=== PATIENT | female | born 1995 | race Caucasian/White ===

== ENCOUNTER 2017-08-30 19:58 | Emergency (ER) | payer OTHER ==
[2017-08-30 21:30] LABS: #Basophils 0.1 thou/uL (0.0-0.2); #Eosinphils 0.2 thou/uL (0.0-0.7); #Lymphocytes 2.3 thou/uL (1.20-3.40); #Monocytes 0.4 thou/uL (0.11-0.59); #Neutrophils 5.9 thou/uL (1.40-6.50); %Basophils 0.6 % (0.0-1.0); %Eosinophils 1.8 % (0.0-10.0); %Lymphocytes 26.2 % (21.0-51.0); %Monocytes 4.2 % (0.0-10.0); Hematocrit 42.5 % (36.0-47.0); Red Blood Cell (RBC) Count 4.96 mill/uL (4.20-5.40); White Blood Cell (WBC) Count 8.8 thou/uL (4.8-10.8)
[2017-08-30 21:38] LABS: Bilirubin Negative (Negative); Blood, Urine Negative (Negative); Glucose, Urine (Dipstick) Negative (Negative); Ketone, Urine 40 mg/dL (Negative); Nitrite Negative (Negative); Protein, Urine (Dipstick) Negative (Neg-Trace)
[2017-08-30 21:52] LABS: ALT (SGPT) 18 U/L (8-55); AST (SGOT) 19 U/L (5-34); Alkaline Phosphatase 79 U/L (40-150); Anion Gap 18 mmol/L (10-20); BUN (Urea Nitrogen) 6 mg/dL (7.0-18.7); Bilirubin, Total 1.1 mg/dL (0.2-1.2); Calc. Creatinine Clearance 0 mL/min (70-130); Calcium 9.6 mg/dL (7.8-10.44); Carbon Dioxide 20 mmol/L (22-29); Chloride 103 mmol/L (98-107); Estimated GFR-MDRD Greater than 90; Globulin 3.3 g/dL (2.4-3.5); Lipase Less than 4 U/L (8-78); Protein, Total 7.5 g/dL (6.0-8.3)
[2017-08-30] MEDS ORDERED: Lorazepam 2 MG/ML VIAL ONE (22:45)
--- NOTE | 2017-08-30 23:07 | RAD ---
EXAM: ONE VIEW ABDOMEN 08/30/17 HISTORY: Abdominal pain. COMPARISON: None. FINDINGS: One view abdomen: Nonspecific bowel gas pattern. No evidence of small bowel distention or dilatation. No suspicious de nsities in the abdomen or pelvis. No pneumoperitoneum on the supine projection. IMPRESSION: Nonspecific bowel gas pattern. POS: [facility]
== END 2017-08-30 23:20 | disposition home or self-care (01) ==
LOC: ERS 19:58
DX: K59.00 Constipation, unspecified (principal); K64.8 Other hemorrhoids
CPT/HCPCS: 36415; 74000; 80053; 81003; 81025; 82274; 83690; 85025; 96372; J2060; J2270

== ENCOUNTER 2018-11-28 10:15 | Outpatient (CLI) | payer BC ==
--- NOTE | 2018-11-28 11:35 | RAD ---
CERVICAL SPINE THREE VIEWS: HISTORY: Left-sided neck and shoulder pain for three days. COMPARISON: None. FINDINGS: Three views of the cervical spine show normal height and alignment of the vertebral bodies and interv ertebral disks without fracture or subluxation. No degenerative changes are seen. No prevertebral s oft tissue swelling is seen. IMPRESSION: Unremarkable examination. POS: [facility]
== END 2018-11-28 10:16 | disposition home or self-care (01) ==
LOC: SCSRAD 10:15
PROVIDERS: ATTEND Chiropractor
DX: M54.2 Cervicalgia (principal)
CPT/HCPCS: 72040

== ENCOUNTER 2019-12-27 16:56 | Emergency (ER) | payer BC, SELFPAY ==
[2019-12-27] MEDS ORDERED: Ketorolac Tromethamine 60 MG/2 ML VIAL ONE (18:40)
[2019-12-27] MEDS ORDERED: Fentanyl 100 MCG/2 ML VIAL ONE (18:40)
[2019-12-27] MEDS ORDERED: Lidocaine 1% w/Epinephrine 1:100K 20 ML VIAL ONE (18:40)
== END 2019-12-27 19:44 | disposition home or self-care (01) ==
LOC: ERS 16:56
DX: K04.7 Periapical abscess without sinus (principal); F32.9 Major depressive disorder, single episode, unspecified
CPT/HCPCS: 41800; 96374; 96375; J1885; J3010

== ENCOUNTER 2022-04-11 09:24 | Outpatient (CLI) | payer BC | END 2022-04-11 09:25 | disposition home or self-care (01) | LOC: SCSRAD 09:24 | PROVIDERS: ATTEND Family Medicine | DX: M54.12 Radiculopathy, cervical region (principal); M54.6 Pain in thoracic spine; M41.9 Scoliosis, unspecified | CPT/HCPCS: 72050; 72072 ==

== ENCOUNTER 2022-06-18 11:21 | Outpatient (CLI) | payer BC | END 2022-06-18 11:22 | disposition home or self-care (01) | LOC: NM 11:21 | PROVIDERS: ATTEND Family Medicine | DX: R10.11 Right upper quadrant pain (principal) | CPT/HCPCS: 78227; A9537 ==

== ENCOUNTER 2023-07-01 08:35 | Day surgery (SDC) | payer BC ==
[2023-06-27 09:51] VITALS: BMI 28.1
[2023-07-01] MEDS ORDERED: Bupivacaine 0.25% HCL 30 ML VIAL ONE (10:13)
[2023-07-01] MEDS ORDERED: Indocyanine Green 25 MG/10 ML VIAL ONE (10:13)
[2023-07-01] MEDS ORDERED: EPINEPHrine 1 MG/ML AMP ONE (10:13)
[2023-07-01] MEDS ORDERED: fentaNYL PF 100 MCG/2 ML SYRINGE ONE (10:29)
[2023-07-01] MEDS ORDERED: SUGAMMADEX SODIUM 200 MG/2 ML VIAL ONE (10:30)
[2023-07-01] MEDS ORDERED: LevoFLOXacin 500 mg/D5W 100 ML BAG ONE (10:46)
[2023-07-01] MEDS ORDERED: Lidocaine 1% PF 5 ML VIAL ONE (10:58)
[2023-07-01] MEDS ORDERED: Glycopyrrolate 0.2 MG/ML 5 ML SYRINGE ONE (10:58)
[2023-07-01] MEDS ORDERED: PROPOFOL 200 MG/20 ML VIAL ONE (10:58)
[2023-07-01] MEDS ORDERED: NEOSTIGMINE 3 MG/3 ML SYR 3 MG/3 ML SYRINGE ONE (10:58)
[2023-07-01] MEDS ORDERED: Dexamethasone 20 MG/5 ML VIAL ONE (10:58)
[2023-07-01] MEDS ORDERED: Ondansetron PF 4 MG/2 ML Vial ONE (10:58)
[2023-07-01] MEDS ORDERED: Naloxone HCl 0.4 mg/ml Vial ONE (10:58)
[2023-07-01] MEDS ORDERED: Ketorolac Tromethamine 30 MG/ML VIAL ONE (10:58)
[2023-07-01] MEDS ORDERED: Rocuronium Bromide 10 MG/ML (10ML VIAL) ONE (10:58)
[2023-07-01] MEDS ORDERED: Promethazine HCl 25 MG/ML VIAL ONE (12:32)
[2023-07-01] MEDS ORDERED: fentaNYL 50 mcg/mL 1 mL Vial ONE ×2 (12:32→12:46)
== END 2023-07-01 14:30 | disposition home or self-care (01) ==
LOC: SDC 08:35
PROVIDERS: ATTEND Surgery
PROC: 0FT44ZZ Resection of Gallbladder, Percutaneous Endoscopic Approach (ICD-10-PCS; principal; 2023-07-01)
DX: K80.10 Calculus of gallbladder with chronic cholecystitis without obstruction (principal); J45.909 Unspecified asthma, uncomplicated; Z90.89 Acquired absence of other organs; Z90.710 Acquired absence of both cervix and uterus; Z79.899 Other long term (current) drug therapy; Z91.041 Radiographic dye allergy status; Z88.1 Allergy status to other antibiotic agents; Z88.8 Allergy status to other drugs, medicaments and biological substances
CPT/HCPCS: 88304; C1889; J0171; J1100; J1885; J1956; J2310; J2405; J2550; J2704; J3010; S0020

== ENCOUNTER 2023-11-29 07:32 | Outpatient (CLI) | payer OTHER | END 2023-11-29 07:33 | disposition home or self-care (01) | LOC: BICMRI 07:32 | PROVIDERS: ATTEND Physician Assistant | DX: M50.122 Cervical disc disorder at C5-C6 level with radiculopathy (principal) | CPT/HCPCS: 72141 ==

== ENCOUNTER 2024-01-17 08:33 | Outpatient (CLI) | payer BC ==
[2024-01-17] MEDS ORDERED: Magnevist 469MG/ML 20 ML VIAL ONE (15:08)
== END 2024-01-17 08:34 | disposition home or self-care (01) ==
LOC: MRI 08:33
PROVIDERS: ATTEND Physician Assistant Medical
DX: R10.10 Upper abdominal pain, unspecified (principal); R11.0 Nausea; K76.89 Other specified diseases of liver; K83.8 Other specified diseases of biliary tract; Z90.49 Acquired absence of other specified parts of digestive tract
CPT/HCPCS: 74183; A9579